=== PATIENT | male | born 1935 | race Caucasian/White ===

== ENCOUNTER → 2016-11-29 | Day surgery (SDC) | payer MEDICARE ==
[~2016-11-29] VITALS: Ht 180.3 cm; Wt 81.9 kg
[~2016-11-29] MED LIST: ADVIL200 MG PO; CARDURA2 MG PO; CENTRUM SILVER1 TAB PO; DELTASONE5 MG PO; ELAVIL50 MG PO; FISH OIL1000 MG PO; GLUCOSAMINE CH1 EAC1 PO; NEURONTIN100 MG PO; NORVASC10 MG PO; PREDNISONE1 MG PO; PRESERVISION A1 EACH PO; TRAMADOL HCL E100 M2 PO; ULTRAM50 MG PO; VITAMIN D-32000 UNI1 PO; ZOCOR10 MG PO
--- NOTE | ~2016-11-29 | HP ---
PATIENT'S NAME: [facility] AGE: 81 Y [address] 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 Also in 2007, adenocarcinoma of the prostate. Subsequently had a total perineal prostatectomy. In March 2011, he was found to have 2 small superficial papillary lesions on the right side of the bladder and the pathology report revealed a low-grade papillary transitional cell carcinoma. In 2011, he had superficial lesions in the bladder which were biopsied and fulgurated. His last recurrence was in October 2015 when he had a low-grade transitional cell carcinoma. His recent evaluation in the office revealed a positive cytology. PAST MEDICAL HISTORY: Illnesses: 1. Hypertension. 2. Arthritis. 3. Adenocarcinoma of the prostate. 4. Transitional cell carcinoma of the bladder. Operations: 1. Right total hip. 2. Left inguinal herniorrhaphy. 3. TUR bladder tumors. 4. Total perineal prostatectomy. ALLERGIES: CODEINE. PHYSICAL EXAMINATION: GENERAL: A well-developed, well-nourished male. CHEST: Clear to auscultation. [facility] 81 [facility] [address] ROOM: [place] [id number] LOCATION: GPOC ADMIT DATE: 11/29/2016 History & Physical DISCHARGE DATE: FAMILY PHYSICIAN: Paras Grimm MD ATTENDING PHYSICIAN: Manjula Benavides HEART: Normal sinus rhythm. ABDOMEN: Soft with no palpable masses. : Normal penis. Testicles are normal. Prostatic fossa is empty. RECTAL: Negative. IMPRESSION: Transitional cell carcinoma of the bladder with positive cytology. PLAN: Cystoscopy and retrogrades. MANJULA BENAVIDES MD EKL/modl /[id number] D: [id number] T: [id number] HISTORY & PHYSICAL
--- NOTE | ~2016-11-29 | OR ---
PATIENT'S NAME: [facility] AGE: 81 Y [address] ROOM: [place] [id number] LOCATION: GPOC ADMIT DATE: 11/29/2016 OR/Procedure Report DISCHARGE DATE: FAMILY PHYSICIAN: Paras Grimm MD ATTENDING PHYSICIAN: Manjula Benavides SURGEON: Manjula Benavides MD WASTEWATER SUPERVISOR: DATE OF PROCEDURE: 11/29/2016 PREOPERATIVE DIAGNOSES: 1. Cancer of the bladder. 2. Positive cytology. POSTOPERATIVE DIAGNOSIS: Normal cystoscopy and retrogrades. PROCEDURE: Cystoscopy and retrogrades. DESCRIPTION OF PROCEDURE: After adequate anesthesia, he was prepped and draped. Cystoscope was passed. Anterior urethra was normal. Prostate was absent since he has had a previous total prostatectomy. The bladder was examined and it was normal. There were no tumors or stones or other abnormalities of the bladder. There were no papillary lesions or carcinoma in situ. Bilateral retrograde pyelograms were done using a whistle-tip catheter. He tolerated the procedure fine and returned to Recovery. RETROGRADE PYELOGRAM REPORT: The initial films showed some degenerative changes of the lumbar spine. After the injection of contrast media, the ureters were of normal course and caliber with no filling defects. Kidneys were of normal size. The pyelocaliceal system filled out nicely with no filling defects. IMPRESSION: Normal retrograde pyelogram. MANJULA BENAVIDES MD EKL/modl /[id number] d: 11/29/16806 t: 11/30/16 0519, OPERATIVE SUMMARY
[2016-11-29 06:44] LABS: BASOPHIL % 0.3 %; EOSINOPHIL # 0.1 K/uL (0.0-0.5); EOSINOPHIL % 1.5 %; HEMATOCRIT 38.3 % (33.0-50.0); IMMATURE GRANULOCYTE % 0.3 %; LYMPHOCYTE # 1.5 K/uL (0.8-4.0); LYMPHOCYTE % 25.3 %; MCH 32.3 pg (27.0-34.0); MCHC 33.9 gm/dL (32.0-36.5); MONOCYTE # 0.7 K/uL (0.0-1.0); MONOCYTE % 12.7 %; MPV 8.6 fl (9.4-12.4); NEUTROPHIL # (ANC) 3.5 K/uL (1.4-9.0); NEUTROPHIL % 59.9 %; NRBC % 0 /100WBC (0-0.00); PLATELET COUNT 175 K/uL (150-450); RBC 4.03 M/uL (3.50-5.50); RDW-CV 13.1 % (11.9-14.6); WBC 5.8 K/uL (4.0-11.0)
== END | disposition disaster alternative care site (69) ==
LOC: GPOC 11-22 09:00
PROVIDERS: Urology
PROC: BT14ZZZ Fluoroscopy of Kidneys, Ureters and Bladder (ICD-10-PCS; principal; 2016-11-29)
DX: C67.9 Malignant neoplasm of bladder, unspecified (principal); R82.8 Abnormal findings on cytological and histological examination of urine; I10 Essential (primary) hypertension; M19.90 Unspecified osteoarthritis, unspecified site; Z85.46 Personal history of malignant neoplasm of prostate; Z90.79 Acquired absence of other genital organ(s); Z88.5 Allergy status to narcotic agent; Z98.890 Other specified postprocedural states
CPT/HCPCS: J1720; J2001; J7120